=== PATIENT | female | born 1960 | race Caucasian/White ===

== ENCOUNTER 2017-04-11 07:32 | Day surgery (SDC) | payer OTHER ==
[~2017-04-11] VITALS: Ht 172.7 cm; Wt 115.8 kg
[2017-04-11] VITALS (739 sets, daily range): BP systolic 124–148; BP diastolic 79–97; PULSE 71–87; TEMP 97.6–98.4; O2SAT 88–100
[2017-04-11 08:59] LABS: HEMOGLOBIN 12.4 g/dl (12.5-16.0); MEAN CELL VOLUME 91 fl (80.0-100.0); MEAN CORPUSCULAR HEMOGLOBIN 31 pg (27.0-31.0); MEAN CORPUSCULAR HGB CONC 34 g/dl (33.0-37.0); MEAN PLATELET VOLUME 9.2 fl (7.4-10.4); PLATELET COUNT 214 K/mm3 (130-400); RED BLOOD COUNT 4.01 M/mm3 (4.10-5.30); WHITE BLOOD COUNT 10.1 K/mm3 (4.8-10.8)
[2017-04-11 09:00] LABS: HEMATOCRIT 36.5 % (37.0-47.0)
[2017-04-11] MEDS ORDERED: ALDACTONE50 MG PO (09:00)
[2017-04-11] MEDS ORDERED: B-121000 MCG PO (09:01)
[2017-04-11] MEDS ORDERED: GLUCOPHAGE500 MG/TAB PO (09:02)
[2017-04-11] MEDS ORDERED: TOPAMAX 25MG25 M1 PO (09:03)
[2017-04-11] MEDS ORDERED: PAXIL40 MG PO (09:03)
[2017-04-11 09:04] LABS: PROTHROMBIN TIME 11.6 SECONDS (9.7-12.8)
[2017-04-11] MEDS ORDERED: ESTRACE0.5 MG PO (09:04)
[2017-04-11] MEDS ORDERED: WELLBUTRIN XL300 M1 PO (09:04)
[2017-04-11] MEDS ORDERED: NORVASC 5MG5 MG/TAB PO (09:05)
[2017-04-11] MEDS ORDERED: TYLENOL 8 HR PO (09:06)
[2017-04-11] MEDS ORDERED: CELEBREX 1100 MG/CAP PO (09:06)
[2017-04-11] MEDS ORDERED: VITAMIN D 50,1.25 MG PO (09:07)
[2017-04-11] MEDS ORDERED: EPA FISH OIL1 SGL PO (09:08)
[2017-04-11] MEDS ORDERED: ASPIRIN 32325 MG/TAB PO (09:08)
[2017-04-11 09:18] LABS: CREATININE, serum 0.82 mg/dL (0.52-1.25); POTASSIUM 4.2 mmol/L (3.4-5.0)
[2017-04-12] VITALS (596 sets, daily range): BP systolic 110–143; BP diastolic 60–78; PULSE 77–85; TEMP 98–98.4; O2SAT 93–100
[2017-04-12 06:39] LABS: MEAN CELL VOLUME 91 fl (80.0-100.0); MEAN CORPUSCULAR HGB CONC 34 g/dl (33.0-37.0); MEAN PLATELET VOLUME 9.1 fl (7.4-10.4); PLATELET COUNT 205 K/mm3 (130-400); RED BLOOD COUNT 3.74 M/mm3 (4.10-5.30); REDCELL DISTRIBUTION WIDTH-CV 14.2 % (11.5-14.5); WHITE BLOOD COUNT 8.9 K/mm3 (4.8-10.8)
[2017-04-12 06:55] LABS: CALCIUM 8.5 mg/dL (8.4-10.2); CREATININE, serum 0.8 mg/dL (0.52-1.25); POTASSIUM 3.6 mmol/L (3.4-5.0)
[2017-04-12 06:56] LABS: HEMATOCRIT 34.1 % (37.0-47.0); HEMOGLOBIN 11.6 g/dl (12.5-16.0); MEAN CORPUSCULAR HEMOGLOBIN 31 pg (27.0-31.0)
[2017-04-12] MEDS ORDERED: ZESTRIL 10MG10 MG PO (09:50)
[2017-04-12] MEDS ORDERED: EFFIENT10 MG PO (09:50)
[2017-04-12] MEDS ORDERED: LIPITOR 40MG TA40 MG PO (09:51)
[2017-04-12] MEDS ORDERED: ASPIRIN 81M81 MG/TA2 PO (09:54)
== END 2017-04-12 10:53 | disposition home or self-care (01) ==
LOC: COL.CAR 07:32 → ICU 11:00 → IMCU 15:45 → COL.CAR 04-12 10:53
PROVIDERS: Internal Medicine Cardiovascular Disease
DX: I25.10 Atherosclerotic heart disease of native coronary artery without angina pectoris (principal); R94.39 Abnormal result of other cardiovascular function study; E28.2 Polycystic ovarian syndrome; I10 Essential (primary) hypertension; I08.1 Rheumatic disorders of both mitral and tricuspid valves
CPT/HCPCS: OP; C1725; C1760; C1769; C1874; C1887; C9600; J0583; J2250; J3010; Q9967

== ENCOUNTER 2020-07-31 11:44 | Day surgery (SDC) | payer BC ==
[~2020-07-31] VITALS: Ht 172.7 cm; Wt 108.3 kg
[2020-07-31] VITALS (10 sets, daily range): BP systolic 96–131; BP diastolic 58–83; PULSE 72–84; TEMP 98.2
[~2020-07-31 11:44] MED LIST: ALDACTONE50 MG PO; ASPIRIN 32325 MG/TAB PO; ASPIRIN 81M81 MG/TA2 PO; CELEBREX 1100 MG/CAP PO; EFFIENT10 MG PO; EPA FISH OIL1 SGL PO; ESTRACE0.5 MG PO; GLUCOPHAGE500 MG/TAB PO; LIPITOR 40MG TA40 MG PO; NORVASC 5MG5 MG/TAB PO; PAXIL40 MG PO; TOPAMAX 25MG25 M1 PO; TYLENOL 8 HR PO; VITAMIN B12 781 TAB PO; VITAMIN D 50,1.25 MG PO; WELLBUTRIN XL300 M1 PO; ZESTRIL 5MG5 MG PO
[2020-07-31 12:07] LABS: HEMOGLOBIN 12.4 g/dl (12.5-16.0); MEAN CELL VOLUME 94 fl (80.0-100.0); MEAN CORPUSCULAR HEMOGLOBIN 32 pg (27.0-31.0); MEAN CORPUSCULAR HGB CONC 34 g/dl (33.0-37.0); MEAN PLATELET VOLUME 9.1 fl (7.4-10.4); PLATELET COUNT 220 K/mm3 (130-400); REDCELL DISTRIBUTION WIDTH-CV 14.2 % (11.5-14.5)
[2020-07-31 12:14] LABS: HEMATOCRIT 36.5 % (37.0-47.0)
[2020-07-31 12:20] LABS: INR 1.1 (0.8-3.0); PROTHROMBIN TIME 12.4 SECONDS (9.7-12.8)
[2020-07-31 12:24] LABS: CALCIUM 9.1 mg/dL (8.4-10.2); CREATININE, serum 0.98 (0.52-1.25); POTASSIUM 4.1 mmol/L (3.4-5.0)
[2020-07-31] MEDS ORDERED: TOPAMAX 25MG25 M1 PO (13:47)
[2020-07-31] MEDS ORDERED: FERROUSAL325 MG PO (13:48)
[2020-07-31] MEDS ORDERED: FOLIC ACID 11 MG/TA1 PO (13:49)
[2020-07-31] MEDS ORDERED: GLUCOPHAGE500 MG/TAB PO (13:50)
[2020-07-31] MEDS ORDERED: VITAMIN C500 MG PO (13:52)
--- NOTE | 2020-07-31 13:59 | NUR ---
Pt to procedure,report to Jairo Westfall.
--- NOTE | 2020-07-31 14:12 | NUR ---
SEE MERGE DOCUMENTATION FOR MEDICATION ADMINISTRATION TIMES AND INTRA/POST PROCEDURE SEDATION ASSESSMENTS. RIGHT HAND BARBEAU TEST POSITIVE.
--- NOTE | 2020-07-31 14:40 | NUR ---
Report from Khoi ALARCON. Transferred from bottle label inspector by bed. Right Tband with 10 cc air CD&I, good pulses and cap refill < 3 secs. VSS.
--- NOTE | 2020-07-31 14:52 | NUR ---
report to Jairo Lakhani.
--- NOTE | 2020-07-31 17:15 | NUR ---
Right Tband deflated of 10 cc air and pressure dressing applied. INT discontinued intact. Discharge instructions given.
--- NOTE | 2020-07-31 17:22 | NUR ---
Transferred to private car by judit
== END 2020-07-31 17:22 | disposition home or self-care (01) ==
LOC: COL.CAR 11:44
PROVIDERS: Internal Medicine Cardiovascular Disease
DX: I25.10 Atherosclerotic heart disease of native coronary artery without angina pectoris (principal); Z20.828 Contact with and (suspected) exposure to other viral communicable diseases; Z95.5 Presence of coronary angioplasty implant and graft; I10 Essential (primary) hypertension; G47.33 Obstructive sleep apnea (adult) (pediatric); E78.5 Hyperlipidemia, unspecified; I07.1 Rheumatic tricuspid insufficiency; R73.03 Prediabetes; I73.9 Peripheral vascular disease, unspecified; Z88.2 Allergy status to sulfonamides; Z88.8 Allergy status to other drugs, medicaments and biological substances; Z79.82 Long term (current) use of aspirin; Z79.899 Other long term (current) drug therapy; Z87.891 Personal history of nicotine dependence; Z79.84 Long term (current) use of oral hypoglycemic drugs
CPT/HCPCS: J1644; J2250; J3010

== ENCOUNTER 2021-12-04 11:52 | Day surgery (SDC) | payer BC ==
[~2021-12-04] VITALS: Ht 170.2 cm; Wt 102.0 kg
[2021-12-04] VITALS (12 sets, daily range): BP systolic 11–125; BP diastolic 48–73; PULSE 64–95; TEMP 97.4–98.2
[~2021-12-04 11:52] MED LIST changes: +FERROUSAL325 MG PO; +FOLIC ACID 11 MG/TA1 PO; +VITAMIN C500 MG PO
[2021-12-04] MEDS ORDERED: ULTRAM 50MG TAB50 MG PO (12:23)
--- NOTE | 2021-12-04 12:45 | NUR ---
The patient reported feeling light headed and dizzy after her IV start. The head of her bed was lowered and she was given a cool washcloth for her forehead. The patient reports feeling better with the change of position and denies any further needs at this time. Will continue to monitor the patient.
--- NOTE | 2021-12-04 14:50 | NUR ---
arrived in room per bed from PACU, awake and alert but very sleepy, IV infusing per dial-a-flow at 100ml/hr, O2 on at 2LNC, abdomen with 4 bandaids and drain to left side of abdomen and all are CD&I, SCDs on bilaterally, assisted her with rolling onto her R side, denies needs
--- NOTE | 2021-12-04 15:15 | NUR ---
assisted her with turning to her back and again to her right side, c/o back pain, daughter at bedside
--- NOTE | 2021-12-04 15:30 | NUR ---
medicated with scheduled tylenol, full assessment completed, see interventions for further info, takes sips of water without difficulty
--- NOTE | 2021-12-04 16:30 | NUR ---
provided 8 ounces of blue gatorade, will monitor ddrain
--- NOTE | 2021-12-04 18:19 | NUR ---
resting in bed, states pain pill has helped with pain, drain emptied and is light pink in color
--- NOTE | 2021-12-04 18:51 | NUR ---
assisted up to bathroom and voided QS, then back to bed
--- NOTE | 2021-12-04 19:12 | NUR ---
bedside shift report given to DORIAN Lopez
[2021-12-05 03:40] VITALS: BP 111/49; PULSE 72; TEMP 98.1
--- NOTE | 2021-12-05 07:00 | NUR ---
ASSESSMENT COMPLETE FOR THIS SHIFT. PT COOPERATIVE WITH CARES. PT RESTING IN BED GOING IN AND OUT OF SLEEP. PT DENIES PALPITATIONS, SOB, OR DIZZINESS. PT COMPLAINED OF PAIN, THROUGHOUT THE SHIFT. JABIER OLIVER AND SCHEDULED TYLENOL GIVEN FOR PAIN. PAIN MEDICATIONS HELPED FOR A TIME. WILL CONTINUE TO MONITOR PT FOR PAIN MANAGEMENT. PT'S MARIOLA HAD GOOD DRAINAGE. PT STATES SHE WOULD LIKE SOMETHING FOR HEARTBURN IN THE AM. REQUEST PASSED ON TO DAYSNHFT RN. PT STATES SHE HAS NO OTHER NEEDS AT THIS TIME. CALL LIGHT WITHIN REACH.
[2021-12-05 07:50] VITALS: BP 119/61; PULSE 65; TEMP 98
[2021-12-05] MEDS ORDERED: NORCO 325 MG-51 TAB PO (10:58)
[2021-12-05] MEDS ORDERED: ZOFRAN 4MG T4 MG/TAB PO (10:58)
--- NOTE | 2021-12-05 11:49 | NUR ---
private household worker spoke with patient to discuss discharge plan. Patient states that she lives at home alone in [place]. Patient states that she is fully independent with her activities of daily living and uses a cane to assist with mobility prn due to a bad knee, which she is hoping to get fixed later this year. Patient reports to no oxygen needs a home but does have a CPAP that is managed through [facility]. PCP is Vivi Nicolas APRN and she utilizes [employer] in for perscriptions with no cost difficulty. Patient states that she does not have a DPOA-HC established at this time. Her daughter Dixon ([phone]) is her closest child but she reports to having two other children, both boys, one living in [place] and one living in [place]. Patient reports that she is legally and is not interested in creating a DPOA-HC at this time. Patient is planning on returning home with no concerns. Discharge plan: Home
[2021-12-05 12:00] VITALS: BP 136/66; PULSE 72; TEMP 98.1
--- NOTE | 2021-12-05 12:34 | NUR ---
Pt resting with eyes closed, even non labored breathing
--- NOTE | 2021-12-05 12:59 | NUR ---
First visit from the docent coordinator. No needs right now.
--- NOTE | 2021-12-05 14:20 | NUR ---
Pt continues to rest with eyes closed, woke pt for scheduled Tylenol. Pt took with garorade as she stated water is not settling well. Shortly after she took the pills, she did have a small amount of emesis. No pills noted in emesis. Pt reported feeling better and that she did not feel nauseated after.
[2021-12-05 15:34] VITALS: BP 117/55; PULSE 70; TEMP 98.1
--- NOTE | 2021-12-05 16:15 | NUR ---
Reviewed discharge instructions with pt to include follow up appointment and prescriptions. INT's removed earlier by DORIAN Mckoy. Pt escorted out via wheelchair
== END 2021-12-05 16:25 | disposition home or self-care (01) ==
LOC: SDCO 11:52 → SURG 15:16 → SDCO 12-05 16:25
DX: E66.01 Morbid (severe) obesity due to excess calories (principal); G47.33 Obstructive sleep apnea (adult) (pediatric); I10 Essential (primary) hypertension; I25.10 Atherosclerotic heart disease of native coronary artery without angina pectoris; M19.90 Unspecified osteoarthritis, unspecified site; G43.909 Migraine, unspecified, not intractable, without status migrainosus; E04.9 Nontoxic goiter, unspecified; F17.210 Nicotine dependence, cigarettes, uncomplicated; F32.A Depression, unspecified; F41.9 Anxiety disorder, unspecified; Z79.899 Other long term (current) drug therapy; Z79.82 Long term (current) use of aspirin; Z68.36 Body mass index [BMI] 36.0-36.9, adult; Z79.891 Long term (current) use of opiate analgesic; Z95.1 Presence of aortocoronary bypass graft
CPT/HCPCS: OP; J0330; J0690; J1100; J2250; J2370; J2405; J2704; J3010; J7120